=== PATIENT | female | born 1995 | race Caucasian/White ===

== ENCOUNTER 2020-10-24 21:45 | Emergency (ER) | payer OTHER ==
[2020-10-24] MEDS ORDERED: NAPROXEN500 MG PO (23:37)
[2020-10-24] MEDS ORDERED: Viscous Lidocaine 2% TOP (23:37)
== END 2020-10-25 00:02 | disposition home or self-care (01) ==
LOC: ER1 21:45
DX: K02.9 Dental caries, unspecified (principal); K04.7 Periapical abscess without sinus; F17.200 Nicotine dependence, unspecified, uncomplicated
CPT/HCPCS: 99283